=== PATIENT | female | born 1980 | race Hispanic/Latino ===

== ENCOUNTER → 2021-09-04 | Outpatient (CLI) | payer OTHER ==
[2021-09-04 16:24] LABS: BASOPHILS % (AUTO) 0.3 % (0.0-5.0); EOSINOPHILS % (AUTO) 0.6 % (0.0-8.0); LYMPHOCYTES % (AUTO) 25.5 % (21.0-51.0); MEAN CORPUSCULAR HGB CONC 31.5 g/dL (32.0-36.0); MEAN CORPUSCULAR VOLUME 85.7 fL (79-99); MONOCYTES % (AUTO) 8.1 % (3.0-13.0); NEUTROPHILS % (AUTO) 65.1 % (40.0-77.0); PLATELET COUNT (AUTO) 192 K/uL (130-400); RED BLOOD CELL COUNT(AUTO) 4.55 MIL/uL (4.00-5.50); RED CELL DISTRIBUTION WIDTH 12.8 % (11.0-15.5); WHITE BLOOD COUNT (AUTO) 11.7 K/uL (4.8-10.8)
[2021-09-04 16:32] LABS: APPEARANCE,URINE Clear (CLEAR); BILIRUBIN,URINE Negative (NEGATIVE); COLOR,URINE Yellow (YELLOW); GLUCOSE, URINE (UA) Negative (NEGATIVE); KETONES,URINE Trace mg/dL (NEGATIVE); LEUKOCYTE ESTERASE ,URINE Negative (NEGATIVE); NITRATE,URINE Negative (NEGATIVE); OCCULT BLOOD,URINE Negative (NEGATIVE); PH,URINE 6.5 (5.0-8.0); PROTEIN,URINE Negative (NEGATIVE); UROBILINOGEN,URINE 0.2 mg/dL (0.2-1.0)
[2021-09-04 16:36] LABS: HEMOGLOBIN A1C 6.7 % (4.0-6.0)
[2021-09-04 17:07] LABS: ALBUMIN 3.7 g/dL (3.5-5.0); BILIRUBIN,TOTAL 0.3 mg/dL (0.2-1.0); CREATININE 0.6 mg/dL (0.5-1.5); POTASSIUM 3.9 mmol/L (3.5-5.1); THYROID STIMULATING HORMONE 1.98 uIU/mL (0.36-3.74); TOTAL PROTEIN, SERUM 7.8 g/dL (6.0-8.3); URIC ACID 5.2 mg/dL (2.6-7.2)
== END | disposition home or self-care (01) ==
LOC: RAH 15:33
PROVIDERS: ATTEND Family Medicine
DX: Z00.01 Encounter for general adult medical examination with abnormal findings (principal); E11.9 Type 2 diabetes mellitus without complications; E03.9 Hypothyroidism, unspecified; E78.5 Hyperlipidemia, unspecified; I10 Essential (primary) hypertension; K21.9 Gastro-esophageal reflux disease without esophagitis; R49.0 Dysphonia; R05.3 Chronic cough
CPT/HCPCS: 36415; 71046; 80053; 80061; 81003; 82043; 82306; 82607; 82627; 82728; 83001; 83036; 83090; 83525; 83735; 84439; 84443; 84481; 84550; 85025; 86038; 86215; 86235; 86376

== ENCOUNTER 2024-02-19 05:46 | Day surgery (SDC) | payer OTHER ==
[2024-02-19] VITALS (10 sets, daily range): BP systolic 97–108; BP diastolic 33–63; PULSE 62–79; RESP 12–16; TEMP 96.6–97.8
[~2024-02-19] VITALS: Ht 157.5 cm; Wt 92.1 kg
[2024-02-19] MEDS ORDERED: LEVO100C4 PO (06:44)
[2024-02-19] MEDS ORDERED: DULA0.75 SQ (06:44)
[2024-02-19] MEDS ORDERED: SIMV-46 PO (06:44)
[2024-02-19] MEDS ORDERED: METF-526 PO (06:44)
[2024-02-19] MEDS: 0.9%NACL 1000ML 1,000 ML IV ONE (06:54)
[2024-02-19] MEDS ORDERED: proPOFol 10 MG/ML 20ML VIAL IV ONE (07:04)
[2024-02-19] MEDS ORDERED: LIDOCAINE HCL 400MG/20ML VIAL ONE (07:04)
[2024-02-19] MEDS ORDERED: PHENYLEPHRINE HCL 10 MG/ML 1ML VIAL IV ONE (07:32)
[2024-02-19] MEDS ORDERED: GLYCOPYRROLATE 0.2 MG/ML 5 ML VIAL ONE (07:35)
== END 2024-02-19 08:54 | disposition home or self-care (01) ==
LOC: DAH 05:46 → SUH 05:46
PROVIDERS: ATTEND Internal Medicine Gastroenterology
DX: Z12.11 Encounter for screening for malignant neoplasm of colon (principal); K31.89 Other diseases of stomach and duodenum; K31.7 Polyp of stomach and duodenum; R12 Heartburn; E66.9 Obesity, unspecified; E11.9 Type 2 diabetes mellitus without complications; E03.9 Hypothyroidism, unspecified; E78.00 Pure hypercholesterolemia, unspecified; Z68.36 Body mass index [BMI] 36.0-36.9, adult; Z79.84 Long term (current) use of oral hypoglycemic drugs; Z79.899 Other long term (current) drug therapy
CPT/HCPCS: 81025; 43251; 82948 ×2; 45378; 43239; J3490 ×2; J7030 ×2; J2704; J2371; A4620; A4215; A4223; A7002; A4222; A4221; A4663; A4606